=== PATIENT | female | born 1995 | race Hispanic/Latino ===

== ENCOUNTER 2018-08-19 18:47 | Emergency (ER) | payer BC ==
[2018-08-19] MEDS ORDERED: ONDANSETRON 4 MG/2 ML VIAL ONE (19:44)
[2018-08-19] MEDS ORDERED: MORPHINE 4 MG/ML SYR ONE ×2 (19:44→21:54)
[2018-08-19] MEDS ORDERED: NA CHLORIDE 0.9% 1,000 ML ONE (19:44)
[2018-08-19 20:04] LABS: Absolute Lymphocytes (CBC) 1.4 K/uL (0.7-4.9); Absolute Monocytes 0.4 K/uL (0.1-1.3); Absolute Neutrophil 5.1 K/uL (1.8-8.0); Basophils % 0.8 % (0-1.3); Eosinophils % 4.9 % (0-4.4); Hematocrit 39.3 % (36.0-45.0); Lymphocytes % 19.1 % (15.3-44.8); MCH 30.2 pg (27.0-35.0); MCV 88.5 fL (80-100); MPV 10.4 fL (7.6-11.3); Monocytes % 4.9 % (3.3-12.3); RBC Red Blood Cell Count 4.44 M/uL (3.86-4.86)
[2018-08-19 20:14] LABS: Albumin 3.9 g/dL (3.4-5.0); Bilirubin Direct 0.2 mg/dL (0-0.2); Bilirubin Total 0.5 mg/dL (0.2-1.0); Potassium 3.7 mmol/L (3.5-5.1); Protein, Total 7.5 g/dL (6.4-8.2)
[2018-08-19 21:34] LABS: Urine Blood NEGATIVE (NEG); Urine Glucose NEGATIVE (NEG); Urine Protein NEGATIVE (NEG); Urine pH 7.5 (5.0-7.0)
--- NOTE | 2018-08-19 21:45 | RAD REPORT ---
EXAM DESCRIPTION: CT - Abdomen Pelvis W Contrast - 08/19/2018 9:34 pm CLINICAL HISTORY: Abdominal pain. COMPARISON: 2016 TECHNIQUE: Computed axial tomography of the abdomen and pelvis was obtained. 100 cc Isovue-300 is ad ministered intravenously. Oral contrast was given. All CT scans are performed using dose optimization technique as appropriate and may include automated exposure control or mA/KV adjustment according to patient size. FINDINGS: A 6 millimeter enhancing lesion is seen within the dome of the liver on the arterial phase. Spleen, pancreas, adrenals and kidneys appear unremarkable. The appendix is normal caliber. There is no evidence of diverticulitis 5 centimeter hemorrhagic right ovarian cyst with small amount free fluid is seen. Tiny umbilical hernia is seen IMPRESSION: 5 centimeter hemorrhagic right ovarian cyst with a small amount of free fluid. Followup pelvic ultrasound in a couple months is recommended to assess stability/resolution 6 millimeter enhancing lesion within the dome the liver probably is benign. Followup ultrasound of th e liver in 3 months is recommended to assess stability
--- NOTE | 2018-08-19 21:47 | RAD REPORT ---
EXAM DESCRIPTION: US - Transvaginal Study Probe - 08/19/2018 8:20 pm CLINICAL HISTORY: Abdominal pain/pelvic pain FINDINGS: The uterus measures 7 x 4 x 5cm. A 2.1 centimeter subserosal fibroid extends off of the fu ndus. . Endometrial stripe measures 11 millimeters The right ovary is enlarged containing blood flow. A 5 centimeter complex cystic mass is present. The left ovary is normal in size and echotexture. A 1 point centimeter ovarian follicle is seen. Small amount of free fluid is present. IMPRESSION: 5 centimeter complex cystic mass within the right ovary likely represents a hemorrhagic cyst. Follow up ultrasound in a couple months is recommended for re-evaluation
--- NOTE | 2018-08-19 22:06 | EDPHYS ---
Physician Documentation [facility] Name: Pina Maldonado Age: 23 yrs Sex: Female : 1995 Arrival Date: 08/19/2018 Time: 18:57 Bed 7 Private MD: ED Physician Manohar Bowens HPI: 08/19 19:42 This 23 yrs old Female presents to ER via Ambulatory with complaints of rn Abdominal Pain. 19:42 The patient presents with abdominal pain in the lower abdomen. Onset: The rn symptoms/episode began/occurred 4 day(s) ago. The symptoms do not radiate. Associated signs and symptoms: Pertinent negatives: anorexia, blood in stools, chest pain, diarrhea, dysuria, fever, hematuria, palpitations, shortness of breath, vaginal discharge, vomiting. The symptoms are described as achy, sharp. Modifying factors: The symptoms are alleviated by remaining still, the symptoms are aggravated by movement, touching the area. Severity of pain: At its worst the pain was moderate in the emergency department the pain is unchanged. The patient has not experienced similar symptoms in the past. Reports lower abd pain, worse on left side, began 4 days ago intermittently, now constant today, no fever/nausea/vomiting/diarrhea/urinary symptoms. Not . About to start her next cycle. Took stool softeners without alleviation. . 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 - Social history:: Smoking status: Patient/guardian denies using tobacco, Patient/guardian denies using alcohol, street drugs. - Ebola Screening: : Patient negative for fever greater than or equal to 101.5 degrees Fahrenheit, and additional compatible Ebola Virus Disease symptoms Patient denies exposure to infectious person Patient denies travel to an Ebola-affected area in the 21 days before illness onset. - Family history:: not pertinent. - Hospitalizations: : No recent hospitalization is reported. ROS: 19:42 Constitutional: Negative for fever, chills, and weight loss, Eyes: Negative for injury, rn pain, redness, and discharge, Cardiovascular: Negative for chest pain, palpitations, and edema, Respiratory: Negative for shortness of breath, cough, wheezing, and pleuritic chest pain, Abdomen/GI: + abd pain, neg for nausea/vomiting/diarrhea MS/Extremity: Negative for injury and deformity, Skin: Negative for injury, rash, and discoloration, Neuro: Negative for headache, weakness, numbness, tingling, and seizure. Exam: 19:42 Constitutional: This is a well developed, well nourished patient who is awake, alert, rn appears uncomfortable. Head/Face: Normocephalic, atraumatic. Eyes: Pupils equal round and reactive to light, extra-ocular motions intact. Lids and lashes normal. Conjunctiva and sclera are non-icteric and not injected. Cornea within normal limits. Periorbital areas with no swelling, redness, or edema. ENT: MMM Cardiovascular: Tachycardic, regular, no murmur Respiratory: Lungs have equal breath sounds bilaterally, clear to auscultation and percussion. No rales, rhonchi or wheezes noted. No increased work of breathing, no retractions or nasal flaring. Abdomen/GI: soft, + tenderness in LLQ and LUQ with guarding, no rebound Skin: Warm, dry with normal turgor. Normal color with no rashes, no lesions, and no evidence of cellulitis. MS/ Extremity: Pulses equal, no cyanosis. Neurovascular intact. Full, normal range of motion. Equal circumference. Neuro: Awake and alert, GCS 15, oriented to person, place, time, and situation. Cranial nerves II-XII grossly intact. Motor strength 5/5 in all extremities. Sensory grossly intact. Cerebellar exam normal. Normal gait. Vital Signs: 19:11 BP 132 / 93; Pulse 107; Resp 18; Temp 98.5(O); Pulse Ox 100% on R/A; Weight 58.97 kg ao (R); Height 5 ft. 0 in. (152.40 cm) (R); Pain 8/10; 19:57 BP 123 / 79; Pulse 91; Resp 16; Temp 98.8; Pulse Ox 98% on R/A; aa1 21:01 BP 127 / 89; Pulse 69; Resp 18; Pulse Ox 100% on R/A; aa1 21:57 BP 94 / 67; Pulse 73; Resp 18; Pulse Ox 100% on R/A; Pain 8/10; aa1 22:17 BP 118 / 73; Pulse 79; Resp 16; Temp 98.6; Pulse Ox 98% on R/A; Pain 5/10; aa1 19:11 Body Mass Index 25.39 (58.97 kg, 152.40 cm) ao MDM: 19:04 Patient medically screened. rn 22:03 Differential diagnosis: appendicitis, Ectopic , non-specific abd pain, Ovarian rn Torsion, Ureterolithiasis, cyst, ruptured cyst. Data reviewed: vital signs, nurses notes, lab test result(s), radiologic studies, CT scan, doppler, and as a result, I will discharge patient. Counseling: I had a detailed discussion with the patient and/or guardian regarding: the historical points, exam findings, and any diagnostic results supporting the discharge/admit diagnosis, lab results, radiology results, the need for outpatient follow up, to return to the emergency department if symptoms worsen or persist or if there are any questions or concerns that arise at home. Response to treatment: the patient's symptoms have markedly improved after treatment, and as a result, I will discharge patient. Special discussion: I discussed with the patient/guardian in detail that at this point there is no indication for admission to the hospital. It is understood, however, that if the symptoms persist or worsen the patient needs to return immediately for re-evaluation. Based on the history and exam findings, there is no indication for further emergent testing or inpatient evaluation. I discussed with the patient/guardian the need to see the OB Gyne specialist for further evaluation of the symptoms. 08/19 19: Order name: Basic Metabolic Panel; Complete Time: 20:52 rn 08/19 19: Order name: CBC with Diff; Complete Time: 20:52 rn 08/19 19:31 Order name: Hepatic Function; Complete Time: 20:52 rn 08/19 19: Order name: Lipase; Complete Time: 20:52 rn 08/19 19:42 Order name: Urine Dipstick--Ancillary (enter results); Complete Time: 21:48 mw2 08/19 19:42 Order name: Urine --Ancillary (enter results); Complete Time: 21:48 mw2 08/19 19:31 Order name: CT Abd/Pelvis - W/Contrast; Complete Time: 21:48 rn 08/19 20:19 Order name: Transvaginal Study Probe; Complete Time: 21:48 EDMS 08/19 21:19 Order name: Urine --Ancillary (enter results); Complete Time: 21:48 mw2 08/19 19:31 Order name: IV Saline Lock; Complete Time: 19:51 rn 08/19 19:31 Order name: Labs collected and sent; Complete Time: 19:51 rn 08/19 19:31 Order name: Urine Dipstick-Ancillary (obtain specimen); Complete Time: 19:38 rn 08/19 19:31 Order name: Urine Test (obtain specimen); Complete Time: 19:38 rn Administered Medications: 19:45 Drug: morphine 4 mg Route: IVP; Site: right antecubital; aa1 20:30 Follow up: Response: No adverse reaction; Pain is decreased aa1 19:45 Drug: Zofran 4 mg Route: IVP; Site: right antecubital; aa1 20:30 Follow up: Response: No adverse reaction aa1 19:45 Drug: NS 0.9% 1000 ml Route: IV; Rate: 1000 ml; Site: right antecubital; aa1 20:30 Follow up: IV Status: Completed infusion aa1 21:53 Drug: morphine 4 mg Route: IVP; Site: right antecubital; aa1 22:16 Follow up: Response: No adverse reaction; Pain is decreased aa1 Disposition: 08/19/18 22:05 Discharged to Home. Impression: Ruptured ovarian cyst, Hemorrhagic Cyst of right ovary. - Condition is Stable. - Discharge Instructions: Ovarian Cyst. - Prescriptions for Tylenol- Codeine #3 300-30 mg Oral Tablet - take 1 tablet by ORAL route every 6 hours As needed; 15 tablet. - Medication Reconciliation Form, Thank You Letter, Antibiotic Education, Prescription Opioid Use form. - Follow up: Private Physician; When: As needed; Reason: Recheck today's complaints, Re-evaluation by your physician. - Problem is new. - Symptoms have improved. Signatures: Dispatcher [employer] EDMS Lida Hayden RN RN aa1 Manohar Bowens MD MD rn Ortiz, Alex, RN RN ao Corrections: (The following items were deleted from the chart) 20:19 19:36 Pelvis Complete+US.RAD.BRZ ordered. EDMS EDMS 22:19 22:05 08/19/2018 22:05 Discharged to Home. Impression: Ruptured ovarian cyst; aa1 Hemorrhagic Cyst of right ovary. Condition is Stable. Forms are Medication Reconciliation Form, Thank You Letter, Antibiotic Education, Prescription Opioid Use. Follow up: Private Physician; When: As needed; Reason: Recheck today's complaints, Re-evaluation by your physician. Problem is new. Symptoms have improved. rn
--- NOTE | 2018-08-19 22:06 | ER ---
Nurse's Notes [facility] Name: Pina Maldonado Age: 23 yrs Sex: Female : 1995 Arrival Date: 08/19/2018 Time: 18:57 Bed 7 Private MD: Diagnosis: Ruptured ovarian cyst;Hemorrhagic Cyst of right ovary Presentation: 08/19 19:08 Presenting complaint: Patient states: Abdominal sharp pain for the past few days that ao is increasing. Patient C/O nausea but negative for vomiting. Pt reports bowl movement yesterday as hard stool and took a stool softener that didn't relieve pain. Transition of care: patient was not received from another setting of care. Onset of symptoms was August 16, 2018. Risk Assessment: Do you want to hurt yourself or someone else? Patient reports no desire to harm self or others. Initial Sepsis Screen: Does the patient meet any 2 criteria? HR > 90 bpm. No. Patient's initial sepsis screen is negative. Does the patient have a suspected source of infection? No. Patient's initial sepsis screen is negative. Care prior to arrival: None. 19:08 Method Of Arrival: Ambulatory ao 19:08 Acuity: CONNER 3 ao Triage Assessment: 19:15 General: Appears in no apparent distress. uncomfortable, Behavior is cooperative, ao anxious. Pain: Complains of pain in abdomen. GI: No deficits noted. 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 - Social history:: Smoking status: Patient/guardian denies using tobacco, Patient/guardian denies using alcohol, street drugs. - Ebola Screening: : Patient negative for fever greater than or equal to 101.5 degrees Fahrenheit, and additional compatible Ebola Virus Disease symptoms Patient denies exposure to infectious person Patient denies travel to an Ebola-affected area in the 21 days before illness onset. - Family history:: not pertinent. - Hospitalizations: : No recent hospitalization is reported. Screenin:08 Abuse screen: Denies threats or abuse. Denies injuries from another. Nutritional aa1 screening: No deficits noted. Tuberculosis screening: No symptoms or risk factors identified. Fall Risk None identified. Assessment: 19:16 General: Appears in no apparent distress. uncomfortable, Behavior is calm, cooperative, aa1 appropriate for age. Pain: Complains of pain in left upper quadrant and left lower quadrant Pain currently is 8 out of 10 on a pain scale. Quality of pain is described as sharp, shooting, Pain began 4 days ago Is continuous. Neuro: Level of Consciousness is awake, alert, obeys commands, Oriented to person, place, time, situation, Moves all extremities. Full function Gait is steady, Speech is normal. Respiratory: Airway is patent Respiratory effort is even, unlabored, Respiratory pattern is regular, symmetrical. GI: Abdomen is non-distended, Bowel sounds present X 4 quads. Abd is soft X 4 quads Abdomen is tender to palpation in left upper quadrant and left lower quadrant Patient currently denies constipation, diarrhea, nausea, vomiting. : No signs and/or symptoms were reported regarding the genitourinary system. EENT: No signs and/or symptoms were reported regarding the EENT system. Derm: Skin is intact, is healthy with good turgor, Skin is pink, warm \T\ dry. Musculoskeletal: Circulation, motion, and sensation intact. Capillary refill < 3 seconds. 20:00 Reassessment: Patient appears in no apparent distress at this time. Patient and/or aa1 family updated on plan of care and expected duration. Pain level reassessed. Patient is alert, oriented x 3, equal unlabored respirations, skin warm/dry/pink. CT notified that pt has finished PO contrast. 21:01 Reassessment: Patient appears in no apparent distress at this time. Patient and/or aa1 family updated on plan of care and expected duration. Pain level reassessed. Patient is alert, oriented x 3, equal unlabored respirations, skin warm/dry/pink. Awaiting CT scan. 22:17 Reassessment: Patient appears in no apparent distress at this time. Patient is alert, aa1 oriented x 3, equal unlabored respirations, skin warm/dry/pink. Discussed d/c \T\ f/u instructions with pt \T\ significant other; denies questions or concerns at this time Patient states feeling better. Vital Signs: 19:11 BP 132 / 93; Pulse 107; Resp 18; Temp 98.5(O); Pulse Ox 100% on R/A; Weight 58.97 kg ao (R); Height 5 ft. 0 in. (152.40 cm) (R); Pain 8/10; 19:57 BP 123 / 79; Pulse 91; Resp 16; Temp 98.8; Pulse Ox 98% on R/A; aa1 21:01 BP 127 / 89; Pulse 69; Resp 18; Pulse Ox 100% on R/A; aa1 21:57 BP 94 / 67; Pulse 73; Resp 18; Pulse Ox 100% on R/A; Pain 8/10; aa1 22:17 BP 118 / 73; Pulse 79; Resp 16; Temp 98.6; Pulse Ox 98% on R/A; Pain 5/10; aa1 19:11 Body Mass Index 25.39 (58.97 kg, 152.40 cm) ao ED Course: 18:57 Patient arrived in ED. tw3 19:04 Manohar Bowens MD is Attending Physician. rn 19:08 Lida Hayden RN is Primary Nurse. aa1 19:08 Patient has correct armband on for positive identification. Bed in low position. Call aa1 light in reach. Pulse ox on. NIBP on. Warm blanket given. 19:11 Triage completed. ao 19:14 Arm band placed on Patient placed in an exam room, on a stretcher, on pulse oximetry, ao Patient notified of wait time. 19:35 Urine collected: clean catch specimen. aa1 19:42 Inserted saline lock: 20 gauge in right antecubital area, using aseptic technique. jb5 Blood collected. 20:18 Ultrasound completed. Patient tolerated well. aa4 20:19 Transvaginal Study Probe In Process Unspecified. EDMS 21:[address] via wheelchair. nj 21:34 CT Abd/Pelvis - W/Contrast In Process Unspecified. EDMS 22:17 No provider procedures requiring assistance completed. IV discontinued, intact, aa1 bleeding controlled, No redness/swelling at site. Pressure dressing applied. Administered Medications: 19:45 Drug: morphine 4 mg Route: IVP; Site: right antecubital; aa1 20:30 Follow up: Response: No adverse reaction; Pain is decreased aa1 19:45 Drug: Zofran 4 mg Route: IVP; Site: right antecubital; aa1 20:30 Follow up: Response: No adverse reaction aa1 19:45 Drug: NS 0.9% 1000 ml Route: IV; Rate: 1000 ml; Site: right antecubital; aa1 20:30 Follow up: IV Status: Completed infusion aa1 21:53 Drug: morphine 4 mg Route: IVP; Site: right antecubital; aa1 22:16 Follow up: Response: No adverse reaction; Pain is decreased aa1 Outcome: 22:05 Discharge ordered by . rn 22:17 Discharged to home ambulatory, with significant other. aa1 22:17 Condition: good 22:17 Discharge instructions given to patient, significant other, Instructed on discharge instructions, follow up and referral plans. medication usage, Demonstrated understanding of instructions, follow-up care, medications, Prescriptions given X 1. 22:19 Patient left the ED. aa1 Signatures: Dispatcher [employer] EDMS Lida Hayden RN RN aa1 Ann-Marie Hogan aa4 Manohar Bowens MD MD rn Ortiz, Alex, RN RN ao Jordan, Nathan nj Broussard, Jennifer jb5 Natali Mansfield tw3 Corrections: (The following items were deleted from the chart) 20:04 19:57 BP 123 / 79; Pulse 91bpm; Resp 16bpm; Pulse Ox 98% RA; Temp 98.8F; 68.04 kg; aa1 Height 5 ft. 8 in.; BMI: 22.8; Pain 9/10; aa1
[2018-08-19 22:32] VITALS: BP 118/73; TEMP 98.6; O2SAT 98
== END 2018-08-19 22:19 | disposition home or self-care (01) ==
LOC: ER 18:47
DX: N83.201 Unspecified ovarian cyst, right side (principal); E03.9 Hypothyroidism, unspecified
CPT/HCPCS: 36415; 74177; 76830; 80048; 80076; 81003; 81025; 83690; 85025; 96361; 96374; 96375; 99284; J2405; J7030; Q9967

== ENCOUNTER 2021-08-04 09:24 | Day surgery (SDC) | payer BC ==
[2021-07-09 09:51] LABS: Absolute Lymphocytes (CBC) 2.8 K/uL (0.7-4.9); Basophils % 0.6 % (0-1.3); Hematocrit 33.5 % (36.0-45.0); Lymphocytes % 33.5 % (15.3-44.8); MPV 9.6 fL (7.6-11.3); RBC Red Blood Cell Count 4.07 M/uL (3.86-4.86)
[2021-07-09 09:56] LABS: Urine Appearance CLEAR (Clear); Urine Bilirubin NEGATIVE (Negative); Urine Blood NEGATIVE (Negative); Urine Color YELLOW (Yellow); Urine Glucose NEGATIVE (Negative); Urine Protein NEGATIVE (Negative); Urine Urobilinogen 0.2 mg/dL (0.2-1.0); Urine pH 5.5 (5.0-7.0)
[2021-07-09 09:57] LABS: Urine Microscopic Reflex NO UMIC
[2021-08-04] MEDS ORDERED: SCOPOLAMINE HYDROBROMIDE PATCH TD ONE (10:23)
[2021-08-04] MEDS ORDERED: Ringers Lactate 1,000 ML IV ONE (10:23)
[2021-08-04 10:30] LABS: Specific Gravity 1.025 (1.005-1.030)
[2021-08-04] MEDS ORDERED: NA CHLORIDE 0.9% 1,000 ML ONE (11:47)
[2021-08-04] MEDS: BUPIVACAINE 0.25% PF 30 ML VIAL ONE ×2 (11:53→12:35)
[2021-08-04] MEDS ORDERED: FENTANYL CITR 100 MCG/2 ML ONE ×2 (12:00→13:22)
[2021-08-04] MEDS ORDERED: MIDAZOLAM HCL 2 MG/2 ML INJ ONE (12:00)
[2021-08-04] MEDS ORDERED: propofoL 200 MG/20 ML VIAL IV ONE ×2 (12:01→15:26)
[2021-08-04] MEDS ORDERED: ROCURONIUM 50 MG/5 ML VIAL IV ONE (12:01)
[2021-08-04] MEDS ORDERED: LIDOCAINE 1% MPF 2 ML AMPULE ONE (12:01)
[2021-08-04] MEDS ORDERED: ONDANSETRON 4 MG/2 ML VIAL ONE ×2 (12:02→13:02)
[2021-08-04] MEDS ORDERED: dexAMETHasone 4 MG/ML VIAL ONE (12:02)
[2021-08-04] MEDS ORDERED: NA CHLORIDE 0.9% 100 ML IV ONE (12:10)
[2021-08-04] MEDS ORDERED: VASOPRESSIN 20 UNIT/ML VIAL ONE (12:11)
[2021-08-04] MEDS ORDERED: dexAMETHasone 10 MG/ML VIAL ONE (13:01)
[2021-08-04] MEDS ORDERED: KETOROLAC 30 MG/ML INJ ONE (13:02)
[2021-08-04] MEDS ORDERED: GLYCOPYRROLATE 0.2 MG/ML SYR ONE (13:30)
[2021-08-04] MEDS ORDERED: NEOSTIGMINE 1 MG/ML -5 ML ONE (13:34)
[2021-08-04] MEDS ORDERED: METHYLENE BLUE 0.5% 10 ML AMP ONE (15:04)
[2021-08-04] MEDS: HYDROMORPHONE HCL 1 MG/ML INJ ONE ×4 (16:15→16:44)
[2021-08-04] MEDS ORDERED: HOME MED 1 EA UNK (Cetirizine Hcl [Zyrtec] 10 MG Tablet) PO PRN (16:47)
[2021-08-04] MEDS ORDERED: HYDROCODONE/APAP 5/325 MG TAB PO PRN (16:48)
[2021-08-04] MEDS ORDERED: PROMETHAZINE INJ 25 MG/ML AMP IV PRN (16:48)
[2021-08-04] MEDS ORDERED: MEPERIDINE HCL 25 MG/ML SYR IM PRN (16:48)
[2021-08-04] MEDS ORDERED: MEPERIDINE HCL 25 MG/ML SYR ONE (16:51)
--- NOTE | 2021-08-04 16:59 | P.BOP ---
Preoperative diagnosis: AUB-L, dysmenorrhea, pelvic pain, dyspareunia Postoperative diagnosis: same and bilateral dense tubo-ovarian adhe sions,perihepatic adhesions Primary procedure: hysteroscopy d/c,laparoscopy myomectomy,bilateral tubo- ovarian adhesions Secondary procedure: chromotubation, bialteral hydrosalpinges, minilap for retrieval Coordinator Of Library Services: Alejandrina Emery Estimated blood loss: minimal Specimen: Endometrial sample,R ovarian cyst/R paraovarian adhesions,fibroids x2 Findings: sharmila tubes+ovaries dense adhesions,hydrosalpinges, lysis/fibroids post wall Anesthesia: General Complications: None Transferred to: Recovery Room Condition: Good
[2021-08-04] MEDS ORDERED: HYDROMORPHONE HCL 2 MG/ML inj ONE (17:24)
[2021-08-04] MEDS ORDERED: HYDROCODONE/APAP 5/325 MG TAB ONE (18:29)
[2021-08-04 18:48] VITALS: TEMP 98.4
[2021-08-04 18:51] VITALS: BP 116/66; O2SAT 99
[2021-08-05] MEDS ORDERED: HOME MED 1 EA UNK (Phentermine Hcl [Phentermine Hcl] 37.5 MG Tablet) PO SCH (09:00)
--- NOTE | 2021-08-05 14:40 | OP ---
Date of Procedure: 08/04/2021 Surgeon: Khloe Jones MD Individual Pension Adviser: Alejandrina Fuchs. Preoperative Diagnoses: Abnormal uterine bleeding-Leiomyomas (menorrhagia, dysmenorrhea pelvic pain and dyspareunia). Postoperative Diagnoses: Abnormal uterine bleeding-Leiomyomas (menorrhagia, dysmenorrhea pelvic pain and dyspareunia), and bilateral dense tubo-ovarian adhesions perihepatic adhesions, bilateral hydros alpinges and tubal occlusion. Procedures Performed: 1.Hysteroscopy, dilation and curettage and Pipelle biopsy. 2.Laparoscopy, myomectomy x2. 3.Bilateral tubo-ovarian lysis. 4.Chromotubation. 5.Mini-laparotomy for retrieval of the fibroid specimens in the bag. Anesthesia: General endotracheal. Estimated Blood Loss: Minimal. Specimens: Endometrial sample, right ovarian cyst, right paraovarian adhesions, and fibroids x2, 2 s pecimens of them. Findings: Bilateral tubes and ovaries were densely adhered to the sidewall, uterosacral ligament, po sterior broad ligament, and sigmoid colon. The right hydrosalpinx much larger than the left. Small ovarian cyst on the right. Two fibroids in the posterior fundal region or upper wall, the largest on e about 5 cm on the right and the second, which was intramural with a subserosal extension and the fi broid on the left was close to 5 cm, multilobulated and subserosal in location. The tubes were block ed, and chromotubation was done initially, but there was a fill in the tubes. After the adhesions we re taken down on both sides, the fallopian tubes were opened up at the fimbriated end, and once the c hromotubation was re-done, there was fill and spill from both sides. The ovary on the right side rea eared to be mostly normal after the decompression of the hydrosalpinx and removal of the right ovaria n cyst. There was no other mass suspected or present, and the left ovary was normal. Once the adhes ions were all taken down and released, Interceed was placed to wrap around the tube and the ovary to prevent adhesion formation as best as possible, and Interceed was placed after closure of the myomect shahzad defects with the help of Interceed as well. The myoma on the right side was closed in 3 layers, although there was no extension to the endometrial cavity, and there was no opening made, with 2-0 V- Loc in a continuous running fashion, and the third layer was done on the top with the help of 2-0 Mon ocryl. On the left side as it was a subserosal fibroid, only two-layered closure was done, one closu re with V-Loc and the second with Monocryl. There was good serosal apposition without any exposure o f the myometrium. No complications. The patient was transferred to the recovery room in stable condition. Indications: The patient is a 26-year-old 0, who has seen Infertility for consultation in past, has had pelvic pain on and off for over 3 years approximately and multiple ER visits. Her pa in had gotten severe midcycle pain and premenstrual, then there was dyspareunia that was significant as well, but the pain would last after the event for hours and then bleeding has been heavier over past few years. On transvaginal ultrasound, there was a 5-cm fundal right fibroid subserosal or intramural/subserosal and then on the left side a 4.8-cm fibroid. There was a 5-cm complex ovarian mass on the right adne xa presumed to be an ovarian mass. CA-125 was not elevated. Then on the left side, a smaller simple cyst was seen. So, the patient was counseled on the possibility of endometriosis or adhesions and p resent laparoscopy with excision of the endometriosis or lysis of adhesions was discussed. The patie nt was consented. Endometrial sampling was reperformed and cavity evaluation as she was told in the past by an infertility doctor that there was a dent in the fundus likely from hysteroscopic findings, to rule out a uterine anomaly, hysteroscopy was important alongside the laparoscopy. Description Of Procedure: She was re-consented in the preoperative area, taken back to the OR, and p laced in a supine fashion. Her was present by her side. Questions and answers were done to their satisfaction before she was taken back. She was placed in the supine position. General anesth esia was given. She was placed in dorsal lithotomy position using Hema stirrups. Arms tucked by e side, positioning checked. SCDs started. No antibiotics were indicated per ACOG guidelines. Vaginally, a speculum was placed to expose the cervix. Anterior lip grasped with 2 Allis clamps. Di agnostic SlimLine hysteroscope introduced through the cervical canal, traversed and entered the uteri ne cavity without any problems. The cavity appeared to be unremarkable. No intracavitary lesions. Scope was removed. Endometrial curette was inserted. Very minimal sample was retrieved. Gentle cur etting was done, so later at the end of the case, an endometrial Pipelle was used for biopsy. Diagnostic uterine manipulator was introduced into the uterus. Then, the balloon inflated and left i n place. Bunch catheter was placed, attached to a drainage bag, and this area was then draped. A 1-cm infraumbilical incision made with scalpel using the open laparoscopy technique. Fascia was in cised, tagged with 0 Vicryl sutures. Peritoneum entered sharply. S-retractors were placed, [place] i ntroduced. Site of entry was checked, unremarkable. 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 No other abnormali ties, endometriosis or masses seen. Then attention directed to the pelvic cavity. Uterus was visibl e with the fibroids, but could not assess the ovaries or ovarian mass. Then, a 10-mm suprapubic, 8-m m left lower quadrant and 5-mm right lower quadrant, 5-mm left upper quadrant incisions were made, an d ports were placed under direct vision. Marcaine was injected in both fascia and the skin level. After visualization of the uterus, please refer to the findings as dictated above, plan 1 was to perf orm the myomectomy, so there could be better visualization of the adnexa as they were adhered complet tonya posteriorly. The adhesions of the bowel were first taken down. The bowel adhesions were taken down with sharp dissection as well as LigaSure for hemostasis as the a dhesions were dense and vascularized. Once the bowel was released, the epiploica was used to retract the sigmoid superiorly so I could have more space posteriorly. Uterus was anteverted, and dilute va sopressin 60 units and 40 mL of normal saline was taken and injected 10 mL at each myomectomy site. Then, a monopolar needle was used to make an incision at the cephalad aspect of the fibroid towards t he fundus at the base of the fibroid on the left side, so going through the serosa, very little bit o f muscularis, so able to get into the fibroid. The fibroid was peeled out and excised as this was co mpletely subserosal after the small amount of the myometrial attachment was cauterized and removed wi th the help of bipolar cautery. There was good hemostasis and there was not too much of avascular ne crosis here. Went down to the other fibroid, base of the fibroid was injected, monopolar needle was used to make a t least a 5-cm incision around, and then it had to be extended slightly in order for the fibroid to b e peeled out. This was clearly an intramural fibroid carefully was dissected and shelled out using a single-tooth tenaculum and removed. The base was cauterized with the bipolar and then the myoma rem ashlyn and placed in the anterior cul-de-sac. We went ahead and closed the myometrium, EBL here was ve ry minimal as well, in 3 layers with a 2-0 V-Loc starting on the right side coming over to the left, then going back in the second layer, which was the middle layer with good depth, and the third layer was done to bring the excess part of the stretched out myometrium, plicated and brought together to c lose the defect completely in a semicircular fashion. There was no space left either. Then, on the top with the serosal closure, I used a 2-0 Monocryl in a continuous running fashion with intraco rporeal knots. The 2-0 V-Loc was brought over to the left fibroid as well for the small amount of th e myometrial damage that there was from excision. This was closed in a full-thickness layer, and the V-Loc was trimmed. Then to bring the serosal edges together again, used a 2-0 Monocryl, and the int racorporeal knot was done again with excellent closure and apposition of the serosa to prevent any ad hesions as best as possible. Then, Interceed was placed at the end of the case on top of this as wel l. Attention was directed to the right tube and ovary. The adhesions were taken down from the posterior broad ligament, then posteriorly between the tube and ovary and the lateral aspect of the pelvic anastacio ewall. Then, dissection performed to open up the area between the infundibulopelvic ligament and the tubo-ovarian complex isolating and dissecting the ureter away. Then, lastly, the adhesions were yifan en down from the most dense areas of the posterior broad ligament at the end. Once the ovarian cyst on the top near the utero-ovarian ligament was excised and the wall was peeled off, this was at least 2 cm, simple, did not appear to have any tumor like wall. Then, the rest of the swelling was comple tely the hydrosalpinx, so went down to inject with the dilute methylene blue. The tube filled but th ere was no spill. So, suctioned out all the blood and fluid in the pelvic cavity. Then dissected th e tube free from the ovary and opened up the fimbriated end with the large dilated tube that was pres ent. Once the fimbriated end was opened up, it was completely decompressed, and once the chromotubat ion was done, there was a good spill. The patient had the desire to preserve her ovaries and tubes t hat she would go to the infertility specialist later, so decided to not remove the tube at this time, although, the patient will be warned about the risk of ectopic and the need for chromotuba tion at a later point in time and will be referred to an infertility specialist. On the opposite side, the tubo-ovarian adhesions were taken down, excised completely so that there wo uld not be any remnants of these. The posterior cul-de-sac was also full of dense adhesions, likely from prior infection or PID and be consistent with all the perihepatic adhesions as well. The train control electronic technician ior broad ligament dissection was performed then and from the uterosacral ligament, from th e lateral wall on the ureter. Area between the adnexal masses and the lateral wall was opened up car efully preserving the ureter and taking down adhesions of the ovary to the posterior broad ligament. The sharp dissection done here. There was very minimal bleeding that was cauterized with the tip of a bipolar [place]. Then, once the complex was released, the chromotubation also fill the tube here , but there was no spill, and identified the fimbriated end, opened this up with scissors, and then o nce the chromotubation was done, there was a good spill. This tube was not as dilated as the other o n the right side but still dilated moderately. Once the decompression was done, this was a decompressed normal-appearing tube, thorough irrigation a nd suction were performed and both the ureters were traced from the pelvic brim to the ureteric tunne l. No evidence of any injury to the ureter. Hemostasis was secured with the help of the bipolar, an d then all the irrigation fluid was suctioned out. Interceed was nicely wrapped around both adnexa, half the sheet on the left and half the sheet on the right, and a full sheet on the posterior wall of the uterus where the myomectomy was performed. Once the case was completed, all the trocars were re moved under direct vision after placing the fibroid specimens in the EndoCatch bag placed through the 10 port and the suprapubic area. All ports were removed. Gas was desufflated. The patient was sylvain joshua in a supine fashion. Then, I closed the fascia at the umbilicus with the help of the 0 Vicryl garcia tures tacked to each other. They were tied together. All skin incisions closed with the help of 3-0 Chromic and 4-0 Chromic. Mini lap was performed, extended the suprapubic incision to about 4 cm, and the skin and subcutaneous tissue were cauterized with monopolar. Fascia opened with monopolar. Both rectus muscles , and the specimens were retrieved without any further cutting. Then, the rectus muscles were brought together with the help of horizontal mattress suture with 0 Miguel ryl. Then, the fascia was closed with the help of continuous 0 Vicryl. Subcutaneous tissue was brou ght together with 3-0 Chromic and subcuticular closed with the help of 4-0 Vicryl in a continuous run gera fashion. The manipulator was removed. A Pipelle biopsy done as dictated before. Bunch was rem ashlyn. Instrument, needle, and sponge counts were correct at the end of the case. The patient tolera magnolia the procedure well. She was recovered from anesthesia and taken to PACU in a stable condition. I discussed the findings of the procedure with her as well as her father. She will have a fu ll explanation with the pictures in the office in 1 week, and she will get a copy of these. Narcotic prescription has been given, 15 mg of test dose Ketoralac was given to the patient, and after 30 min utes of no reaction as she did not need any further Ketoralac, we did not give the second 15, but the patient did well with this. Thirty tablets of hydrocodone were called in as she is unable to take ibuprofen. DARRION Voice ID: [id number] Report ID: [id number]
== END 2021-08-04 18:45 | disposition home or self-care (01) ==
LOC: OR 09:24
PROVIDERS: ATTEND Obstetrics & Gynecology
PROC: 0UDB7ZX Extraction of Endometrium, Via Natural or Artificial Opening, Diagnostic (ICD-10-PCS; 2021-08-04)
PROC: 0UN24ZZ Release Bilateral Ovaries, Percutaneous Endoscopic Approach (ICD-10-PCS; 2021-08-04)
PROC: 0UN74ZZ Release Bilateral Fallopian Tubes, Percutaneous Endoscopic Approach (ICD-10-PCS; 2021-08-04)
PROC: 3E1P88X Irrigation of Female Reproductive using Irrigating Substance, Via Natural or Artificial Opening Endoscopic, Diagnostic (ICD-10-PCS; 2021-08-04)
PROC: 0UB94ZZ Excision of Uterus, Percutaneous Endoscopic Approach (ICD-10-PCS; 2021-08-04)
PROC: 0UB98ZX Excision of Uterus, Via Natural or Artificial Opening Endoscopic, Diagnostic (ICD-10-PCS; principal; 2021-08-04 12:30)
DX: N93.9 Abnormal uterine and vaginal bleeding, unspecified (principal); D25.9 Leiomyoma of uterus, unspecified; N94.6 Dysmenorrhea, unspecified; N94.10 Unspecified dyspareunia; N92.0 Excessive and frequent menstruation with regular cycle; Z20.822 Contact with and (suspected) exposure to COVID-19
CPT/HCPCS: 85025; 36415; 86900; 86850; 81025; 86901; 88305; 81003; 58558; 58660; 58350; 58545; U0002; J2704 ×2; J1100 ×2; J2250; J1170 ×3; J3010 ×2; J2175; J2710; J7120; J7030; J2405 ×2; 88304